=== PATIENT | male | born 1990 ===

== ENCOUNTER 2018-11-19 23:14 | Emergency (ER) | payer SELFPAY ==
[2018-11-19 23:49] VITALS: BP 115/82; PULSE 75; RESP 20; TEMP 98.9; O2SAT 100
--- NOTE | 2018-11-20 00:13 | C.PDOC ---
History Of Present Illness 28-year-old male, whose past medical history includes seasonal allergies, presents to the ED for evaluation of itching, swelling and puffiness to eyes which began two days ago. Patient states he took Zyrtec two days ago and then changed to Belkis today, without relief. PAtient states he is unable to sleep due to the itchiness. He denies fever, chills, eye pain, photophobia, headache. Time Seen by Provider: 11/20/18 00:01 Chief Complaint (Nursing): Eye Problem History Per: Patient History/Exam Limitations: no limitations Onset/Duration Of Symptoms: Days (2) Injury To Eye?: No Associated Symptoms: Swelling, Itching Additional History Per: Patient Past Medical History Reviewed: Historical Data, Nursing Documentation, Vital Signs Vital Signs: Last Vital Signs Temp 98.9 F 11/19/18 23:41 Pulse 75 11/19/18 23:41 Resp 20 11/19/18 23:41 BP 115/82 11/19/18 23:41 Pulse Ox 100 11/19/18 23:41 Primary Care Provider: FAMILY PROVIDER,NO - Medical History PMH: No Chronic Diseases Surgical History: No Surg Hx Family History: States: Unknown Family Hx - Social History Hx Alcohol Use: Yes Hx Substance Use: No Review Of Systems Constitutional: Negative for: Fever, Chills Eyes: Positive for: Other (itching, swelling and puffiness to bilateral eyes ). Negative for: Pain Neurological: Negative for: Headache Physical Exam - Physical Exam Appears: Non-toxic, No Acute Distress Skin: Normal Color, Warm, Dry Head: Atraumatic, Normacephalic Eye(s): bilateral: Other (moderate conjunctival erythema with periorbital swelling and slight hyperpigmentation of the infraorbital area. no eye discharge or crusting noted. ) Oral Mucosa: Moist Neck: Supple Chest: Symmetrical, No Deformity, No Tenderness Cardiovascular: Rhythm Regular, No Murmur Respiratory: Normal Breath Sounds, No Rales, No Rhonchi, No Wheezing Extremity: Normal ROM Neurological/Psych: Oriented x3, Normal Speech, Normal Cognition ED Course And Treatment O2 Sat by Pulse Oximetry: 100 (on RA) Pulse Ox Interpretation: Normal Progress Note: Benadryl PO given. On reassessment, patient is resting comfortably, showing no signs of distress and is stable for discharge with Rx. P atient is advised to follow up with his PMD within 1-2 days for further evaluation. Disposition Counseled Patient/Family Regarding: Diagnosis, Need For Followup - Disposition Referrals: [facility] [Outside] Disposition: HOME/ ROUTINE Disposition Time: 00:11 Condition: STABLE Additional Instructions: Please follow up with PMD Take medications as directed Return to ER if worse Prescriptions: Fluticasone Nasal [Flonase] 1 spr NS BID #1 spr Olopatadine 0.1% Opht [Patanol 5 Ml] 1 drop OP DAILY #1 bottle Instructions: Seasonal Allergies (DC) Forms: [employer] (Micron[place]) - Clinical Impression Clinical Impression: Allergic rhinitis - PA / MEDICAL SURGICAL TECH / Resident Statement MD/DO has reviewed & agrees with the documentation as recorded. - Scribe Statement The provider has reviewed the documentation as recorded by the Scribe (Kimberli Moreno) All medical record entries made by the Scribe were at my direction and personally dictated by me. I have reviewed the chart and agree that the record accurately reflects my personal performance of the history, physical exam, medical decision making, and the department course for this patient. I have also personally directed, reviewed, and agree with the discharge instructions and disposition.
== END 2018-11-20 00:22 | disposition home or self-care (01) ==
LOC: C.ER 23:14
DX: J30.9 Allergic rhinitis, unspecified (principal); Z87.891 Personal history of nicotine dependence

== ENCOUNTER 2018-11-22 14:24 | Emergency (ER) | payer SELFPAY ==
[2018-11-22 14:45] VITALS: BP 105/78; PULSE 75; RESP 18; TEMP 98; O2SAT 98
--- NOTE | 2018-11-22 14:59 | C.PDOC ---
History Of Present Illness 28-year-old male presents to the ED for evaluation of worsening allergy symptoms which began 4 days ago. Patient was evaluated in this ED on 11/19 and prescribed Flonose and Patanol. Patient reports some improvement, but states his symptoms are worse at night. Patient reports he wakes up with red and puffy eyes in the morning despite taking medications. He has also taken Benadryl and Zyrtec with little relief. Patient denies formal allergy testing. Patient denies fever, chills, shortness of breath, chest pain, nausea, and vomiting. Chief Complaint (Nursing): Allergic Reaction History Per: Patient History/Exam Limitations: no limitations Onset/Duration Of Symptoms: Days (3) Current Symptoms Are (Timing): Worse Additional History Per: Patient Past Medical History Reviewed: Historical Data, Nursing Documentation, Vital Signs Vital Signs: Last Vital Signs Temp 98 F 11/22/18 14:42 Pulse 75 11/22/18 14:42 Resp 18 11/22/18 14:42 BP 105/78 11/22/18 14:42 Pulse Ox 98 11/22/18 14:42 Primary Care Provider: FAMILY PROVIDER,NO - Medical History PMH: No Chronic Diseases Surgical History: No Surg Hx Family History: States: Unknown Family Hx - Social History Hx Alcohol Use: Yes Hx Substance Use: No Review Of Systems Constitutional: Negative for: Fever, Chills Eyes: Positive for: Redness, Other (puffiness to eyes ) Cardiovascular: Negative for: Chest Pain Respiratory: Negative for: Shortness of Breath Gastrointestinal: Negative for: Nausea, Vomiting, Diarrhea Physical Exam - Physical Exam Appears: Non-toxic, No Acute Distress Skin: Normal Color, Warm, Dry Head: Atraumatic, Normacephalic Eye(s): bilateral: Other (conjunctival injection OU -allergic conjunctivitis ) Ear(s): Bilateral: Normal Nose: Other (moderate turbinate hypertrophy bilaterally ) Oral Mucosa: Moist Tongue: Normal Appearing Lips: Normal Appearing Throat: Normal, No Erythema, No Exudate Neck: Normal ROM, Supple Chest: Symmetrical, No Deformity, No Tenderness Cardiovascular: Rhythm Regular, No Murmur Respiratory: Normal Breath Sounds, No Rales, No Rhonchi, No Wheezing, Other (speaking in full sentences ) Neurological/Psych: Oriented x3, Normal Speech, Normal Cognition ED Course And Treatment O2 Sat by Pulse Oximetry: 98 (on RA ) Pulse Ox Interpretation: Normal Medical Decision Making Medical Decision Making: Plan: Discontinue Benadryl, Patanol, and Zyrtec Start Xyzal at night cold compresses in the AM Dymista spray twice a day Air filter throughout the day recommend formal allergy testing with feeder/folder patient verbalizes understanding and is in agreement with plan patient is stable for discharge Disposition Counseled Patient/Family Regarding: Diagnosis, Need For Followup, Rx Given - Disposition Referrals: [place] DO [Medical Doctor] - José Luis Estevez MD [Medical Doctor] - Yousuf Li MD [Medical Doctor] - Toy Delvalle MD [Medical Doctor] - Camacho Marshall MD [Medical Doctor] - Maik Mitchell MD [Medical Doctor] - Disposition: HOME/ ROUTINE Disposition Time: 14:56 Condition: STABLE Additional Instructions: Discontinue Benadryl, Patanol, and Zyrtec Start Xyzal at night cold compresses in the AM Dymista spray twice a day Air filter throughout the day recommend formal allergy testing with feeder/folder Prescriptions: Azelastine/Fluticasone [Dymista] 1 spr NS BID #1 bottle Levocetirizine Dihydrochloride [Xyzal] 5 mg PO DAILY #30 tablet Instructions: Seasonal Allergies (DC), Conjunctivitis (Noninfectious Pinkeye) (DC) Forms: [employer] ([place] Citizen) - Clinical Impression Clinical Impression: Seasonal allergies, Allergic conjunctivitis - 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 - Scribe Statement The provider has reviewed the documentation as recorded by the Scribe (Kimberli Moreno) All medical record entries made by the Scribe were at my direction and perso arabella dictated by me. I have reviewed the chart and agree that the record accurately reflects my personal performance of the history, physical exam, medical decision making, and the department course for this patient. I have also personally directed, reviewed, and agree with the discharge instructions and disposition.
== END 2018-11-22 15:16 | disposition home or self-care (01) ==
LOC: C.ER 14:24
DX: H10.13 Acute atopic conjunctivitis, bilateral (principal); J30.2 Other seasonal allergic rhinitis